=== PATIENT | male | born 1945 | race Hispanic/Latino ===

== ENCOUNTER → 2023-05-31 | Outpatient (CLI) | payer OTHER ==
[~2023-05-31] MED LIST: ACET-66 PO; ALBUHFA IH; ASPI-1197 PO; ATOR40TA69 PO; CARB1DRO40 OP; CARV6.25 PO; CLOP75TA32 PO; EMPA25TA PO; EPLE25TA10 PO; GABA-534 PO; GLIP10TA9 PO; IPRA42SP NS; ISOS20TA85 PO; LEVO112C4 PO; LIDOP TP; METF-446 PO; NITR0.4T50 SL; SACU1TAB PO; SEMA0.258 SQ; TRAZ-187 PO
[2023-05-31] MEDS: REGADENOSON 0.4 MG/5 ML PF SYG IVP SCH (11:47)
== END | disposition home or self-care (01) ==
LOC: RAH 08:18
PROVIDERS: ATTEND Internal Medicine Cardiovascular Disease
DX: I25.9 Chronic ischemic heart disease, unspecified (principal)
CPT/HCPCS: 78452; 96374; 93017; J2785; A9500 ×2

== ENCOUNTER 2023-06-19 15:50 | Emergency (ER) | payer OTHER ==
[~2023-06-19] VITALS: Ht 172.7 cm; Wt 86.2 kg
[~2023-06-19 15:50] MED LIST changes: -ACET-66 PO; -ALBUHFA IH; +AMIO200T44 PO; -ASPI-1197 PO; +BENZ-226 PO; -CARB1DRO40 OP; -CARV6.25 PO; +CARV6.2579 PO; -CLOP75TA32 PO; -EMPA25TA PO; -EPLE25TA10 PO; +FURO20TA4 PO; -GLIP10TA9 PO; -IPRA42SP NS; -ISOS20TA85 PO; -LIDOP TP; -METF-446 PO; -SEMA0.258 SQ; +SPIR25TA6 PO
[2023-06-19 16:12] LABS: BASOPHILS # (AUTO) 0.05 K/uL (0.00-0.20); BASOPHILS % (AUTO) 0.9 % (0.0-5.0); EOSINOPHILS # (AUTO) 0.04 K/uL (0.00-0.70); EOSINOPHILS % (AUTO) 0.7 % (0.0-8.0); HEMATOCRIT 38.5 % (42-54); IMMATURE GRANULOCYTE ABSOLUTE 0.02 K/uL (0-1); LYMPHOCYTES # (AUTO) 0.9 K/uL (1.0-4.8); LYMPHOCYTES % (AUTO) 15.2 % (21.0-51.0); MEAN CORPUSCULAR HEMOGLOBIN 30.4 pg (27.0-33.0); MEAN CORPUSCULAR HGB CONC 32.7 g/dL (32.0-36.0); MEAN CORPUSCULAR VOLUME 92.8 fL (79-99); MONOCYTES # (AUTO) 0.5 K/uL (0.1-1.0); MONOCYTES % (AUTO) 9.1 % (3.0-13.0); NEUTROPHILS # (AUTO) 4.2 K/uL (1.8-7.7); NEUTROPHILS % (AUTO) 73.8 % (40.0-77.0); PLATELET COUNT (AUTO) 139 K/uL (130-400); RED BLOOD CELL COUNT(AUTO) 4.15 MIL/uL (4.50-6.20); RED CELL DISTRIBUTION WIDTH 16.9 % (11.0-15.5); WHITE BLOOD COUNT (AUTO) 5.7 K/uL (4.8-10.8)
[2023-06-19 16:22] LABS: CREATININE 1.6 mg/dL (0.5-1.5); POTASSIUM 4.3 mmol/L (3.5-5.1)
[2023-06-19 16:27] LABS: ALBUMIN 3.2 g/dL (3.5-5.0); TOTAL PROTEIN, SERUM 6.6 g/dL (6.0-8.3)
[2023-06-19 20:54] VITALS: BP 119/79; PULSE 78; RESP 18; O2SAT 96
[2023-06-19 21:28] LABS: ABG BASE EXCESS -0.2 mmol/L (-2.0-3.0); ABG HCO3 23.9 mmol/L (21.0-28.0); ABG OXYGEN SATURATION 91.9 % (95.0-99.0); ABG PCO2 37 mmHg (35-48); ABG PH 7.426 (7.35-7.450); CARBON MONOXIDE 0.7; DEVICE COMMENT RA RR; PO2, ARTERIAL BG 68.7 mmHg (83.0-108.0)
[2023-06-22] MEDS ORDERED: ASPI-1197 PO (16:29)
[2023-06-22] MEDS ORDERED: [UNRECOGNIZED DRUG - OTHER] PO (16:29)
[2023-06-22] MEDS ORDERED: CARB15DR OP (16:29)
[2023-06-22] MEDS ORDERED: METF-445 PO (16:29)
[2023-06-22] MEDS ORDERED: VITS42.53 TP (16:29)
[2023-06-22] MEDS ORDERED: CLOP75TA32 PO (16:29)
[2023-06-22] MEDS ORDERED: SACU1TAB7 PO (16:29)
[2023-06-22] MEDS ORDERED: SPIR25TA6 PO (16:29)
[2023-06-22] MEDS ORDERED: GUAI200T5 PO (16:29)
[2023-06-22] MEDS ORDERED: GLIP10TA9 PO (16:29)
[2023-06-22] MEDS ORDERED: ALBU10.7 IH (16:29)
[2023-06-22] MEDS ORDERED: BENZ-226 PO (16:29)
== END 2023-06-19 22:49 | disposition home or self-care (01) ==
LOC: EDH 15:50
DX: I11.0 Hypertensive heart disease with heart failure (principal); I50.9 Heart failure, unspecified; E11.9 Type 2 diabetes mellitus without complications; E78.00 Pure hypercholesterolemia, unspecified; I25.2 Old myocardial infarction
CPT/HCPCS: 36415; 36600; 71045; 80053; 82435; 82803; 82947; 83605; 84132; 84295; 84484; 85018; 85025; 93005